=== PATIENT | female | born 2000 | race Two or more races ===

== ENCOUNTER 2024-06-22 10:45 | Outpatient (CLI) | payer OTHER | END 2024-06-22 10:50 | disposition home or self-care (01) | LOC: SONOGRAMA 10:45 | PROVIDERS: ATTEND Obstetrics & Gynecology Gynecology | DX: Z34.02 Encounter for supervision of normal first pregnancy, second trimester (principal) ==

== ENCOUNTER 2024-07-25 02:02 | Emergency (ER) | payer OTHER ==
[~2024-07-25] VITALS: Ht 162.6 cm; Wt 52.6 kg
[2024-07-25] MEDS ORDERED: PRENATAL + DHA1 EAC1 PO (02:18)
[2024-07-25] MEDS ORDERED: KETOROLAC TROMETHAMINE 30 MG VIAL IV STA (03:25)
[2024-07-25] MEDS ORDERED: DEXAMETHASONE SODIUM PHOSPHATE 4 MG/ML VIAL IV STA (03:26)
[2024-07-25] MEDS ORDERED: CLINDAMYCIN PHOSPHATE 150 MG/ML (600mg) IV STA (03:28)
[2024-07-25] MEDS ORDERED: ACETAMINOPHEN WITH CODEINE 1 UDTAB TABLET PO STA (03:29)
[2024-07-25] MEDS ORDERED: KETOROLAC TROMETHAMINE 30 MG VIAL ONE (03:33)
[2024-07-25] MEDS ORDERED: DEXAMETHASONE SODIUM PHOSPHATE 4 MG/ML VIAL ONE ×2 (03:33→05:00)
[2024-07-25] MEDS ORDERED: CLINDAMYCIN PHOSPHATE 150 MG/ML (300mg) ONE (03:33)
== END 2024-07-25 05:02 | disposition home or self-care (01) ==
LOC: ER 02:03
DX: K05.219 Aggressive periodontitis, localized, unspecified severity (principal); K05.30 Chronic periodontitis, unspecified; K02.9 Dental caries, unspecified; Z91.013 Allergy to seafood

== ENCOUNTER 2024-08-05 10:40 | Outpatient (CLI) | payer OTHER ==
[~2024-08-05 10:40] MED LIST: PRENATAL + DHA1 EAC1 PO
== END 2024-08-05 10:41 | disposition home or self-care (01) ==
LOC: PRENATAL 10:40
PROVIDERS: ATTEND Obstetrics & Gynecology Maternal & Fetal Medicine
DX: O35.3XX0 Maternal care for (suspected) damage to fetus from viral disease in mother, not applicable or unspecified (principal); O44.00 Complete placenta previa NOS or without hemorrhage, unspecified trimester; O26.879 Cervical shortening, unspecified trimester; Z3A.28 28 weeks gestation of pregnancy

== ENCOUNTER 2024-09-01 09:15 | Outpatient (CLI) | payer OTHER | END 2024-09-01 09:16 | disposition home or self-care (01) | LOC: PRENATAL 09:15 | PROVIDERS: ATTEND Obstetrics & Gynecology Maternal & Fetal Medicine | DX: O26.849 Uterine size-date discrepancy, unspecified trimester (principal); O36.8199 Decreased fetal movements, unspecified trimester, other fetus; O36.5990 Maternal care for other known or suspected poor fetal growth, unspecified trimester, not applicable or unspecified; O26.879 Cervical shortening, unspecified trimester; Z3A.31 31 weeks gestation of pregnancy ==

== ENCOUNTER 2024-09-18 14:14 | Outpatient (CLI) | payer OTHER | END 2024-09-18 14:15 | disposition home or self-care (01) | LOC: PRENATAL 14:14 | PROVIDERS: ATTEND Obstetrics & Gynecology Maternal & Fetal Medicine | DX: O26.849 Uterine size-date discrepancy, unspecified trimester (principal); O36.8199 Decreased fetal movements, unspecified trimester, other fetus; O36.5990 Maternal care for other known or suspected poor fetal growth, unspecified trimester, not applicable or unspecified; Z3A.32 32 weeks gestation of pregnancy ==

== ENCOUNTER 2024-09-25 09:16 | Outpatient (CLI) | payer OTHER | END 2024-09-25 09:18 | disposition home or self-care (01) | LOC: PRENATAL 09:16 | PROVIDERS: ATTEND Obstetrics & Gynecology Maternal & Fetal Medicine | DX: O36.5990 Maternal care for other known or suspected poor fetal growth, unspecified trimester, not applicable or unspecified (principal); O36.8199 Decreased fetal movements, unspecified trimester, other fetus; Z3A.36 36 weeks gestation of pregnancy ==